=== PATIENT | female | born 2000 | race Caucasian/White ===

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

== ENCOUNTER → 2020-05-19 | Outpatient (CLI) | payer BC, OTHER ==
[2020-05-19 14:25] LABS: FREE T4 0.91 NG/DL (0.78-1.33)
[2020-05-19 14:27] LABS: THYROID PEROXIDASE ANTIBODY < 28.0 U/ML (<60.0)
== END ==
LOC: M PLALAB 11:35
PROVIDERS: ATTEND Specialist
DX: F41.9 Anxiety disorder, unspecified (principal)